=== PATIENT | female | born 1980 | race Caucasian/White ===

== ENCOUNTER → 2016-11-09 | Outpatient (CLI) | payer BC ==
--- NOTE | 2016-11-12 07:01 | MM ---
Reason for exam: follow-up at short interval from prior study. Last mammogram was performed 5 months ago. History: Patient has history of other cancer at age 30. US discontinued breast bx RT of the right breast, June 15, 2016. Taking hormonal contraceptives for 17 years. Physical Findings: Nurse did not find any significant physical abnormalities on exam. MG 3D Diag Mammo W/Cad SAUNDRA Bilateral CC and MLO view(s) were taken. Prior study comparison: June 08, 2016, right breast MG 3d diag mammo w/cad RT. November 04, 2015, bilateral MG 3d diag mammo w/cad SAUNDRA. The breast tissue is heterogeneously dense. This may lower the sensitivity of mammography. Finding: There are typically benign round calcifications in both breasts. There is a chronic nodularity in the right breast. There is no dominant lesion. These results were verbally communicated with the patient and result sheet given to the patient on 11/09/16. ASSESSMENT: Suspicious, BI-RAD 4 RECOMMENDATION: Ultrasound core biopsy of the right breast. Called Dr. Rascon with mammographic findings and has scheduled an appointment for the patient for 11/15/16 at 11:[address] Ku. PRELIMINARY REPORT CALLED AND FAXED TO DR. KU ON 11/12/16 AT 300/TP.
--- NOTE | 2016-11-12 07:02 | USB ---
Reason for exam: follow-up at short interval from prior study. History: Patient has history of other cancer at age 30. US discontinued breast bx RT of the right breast, June 15, 2016. Taking hormonal contraceptives for 17 years. US Breast RT Right breast ultrasound including all four quadrants, the retroareolar region and axilla demonstrates a 0.7 x 0.8 x 0.4cm oval, lobular, hypoechoic lesion at 1 o'clock for which a biopsy is advised and a 0.3 x 0.3 x 0.2cm oval, cystic lesion at 11 o'clock. These results were verbally communicated with the patient and result sheet given to the patient on 11/09/16. ASSESSMENT: Suspicious, BI-RAD 4 RECOMMENDATION: Ultrasound core biopsy of the right breast. Called Dr. Rascon with mammographic findings and has scheduled an appointment for the patient for 11/15/16 at 11:[address] Ku. PRELIMINARY REPORT CALLED AND FAXED TO DR. KU ON 11/12/16 AT 300/TP.
== END | disposition home or self-care (01) ==
LOC: RADMAMWWP 12:54
PROVIDERS: ATTEND Obstetrics & Gynecology
DX: R92.8 Other abnormal and inconclusive findings on diagnostic imaging of breast (principal)
CPT/HCPCS: 76641; G0204; G0279

== ENCOUNTER → 2018-01-03 | Outpatient (CLI) | payer MEDICAID ==
--- NOTE | 2018-01-03 11:02 | MM ---
Reason for exam: additional evaluation requested from prior study. Last mammogram was performed 1 year and 2 months ago. History: Patient has history of other cancer at age 30. Benign ultrasound-guided core biopsy of the right breast, 2016. US discontinued breast bx RT of the right breast, June 15, 2016. Taking hormonal contraceptives for 17 years. Physical Findings: Nurse did not find any significant physical abnormalities on exam. MG Diagnostic Mammo w CAD SAUNDRA Bilateral CC and MLO view(s) were taken. Prior study comparison: November 09, 2016, bilateral MG 3d diag mammo w/cad SAUNDRA. June 08, 2016, right breast MG 3d diag mammo w/cad RT. The breast tissue is heterogeneously dense. This may lower the sensitivity of mammography. Nodular density which was biopsied previously (fibroadenoma) right breast. No new nodularity. These results were verbally communicated with the patient and result sheet given to the patient on 01/03/18. ASSESSMENT: Incomplete: need additional imaging evaluation, BI-RAD 0 RECOMMENDATION: Ultrasound of the right breast.
--- NOTE | 2018-01-03 11:05 | USB ---
Reason for exam: additional evaluation requested from abnormal screening. History: Patient has history of other cancer at age 30. Benign ultrasound-guided core biopsy of the right breast, 2017. US discontinued breast bx RT of the right breast, June 15, 2016. Taking hormonal contraceptives for 17 years. US Breast RT Right breast ultrasound includes all four quadrants, the retroareolar region and axilla. Finding demonstrates a 0.6 x 0.5 x 0.8cm hypoechoic lesion at 1 o'clock, previously biopsied consistent with fibroadenoma. These results were verbally communicated with the patient and result sheet given to the patient on 01/03/18.. ASSESSMENT: Benign, BI-RAD 2 RECOMMENDATION: Routine screening mammogram of both breasts in 1 year.
== END ==
LOC: RADMAMWWP 08:34
PROVIDERS: ATTEND Surgery
DX: R92.8 Other abnormal and inconclusive findings on diagnostic imaging of breast (principal)
CPT/HCPCS: 77066

== ENCOUNTER → 2019-04-03 | Outpatient (CLI) | payer MEDICAID ==
[2019-04-03 18:07] LABS: HIV 1 AB Non-Reactive (Non-Reactive); HIV AB P24 Non-Reactive (Non-Reactive); HIV P24 AG Non-Reactive (Non-Reactive)
--- NOTE | 2019-04-06 10:50 | MM ---
Reason for exam: screening (asymptomatic). Last mammogram was performed 1 year and 3 months ago. History: Patient has history of other cancer at age 30. Benign ultrasound-guided core biopsy of the right breast, 2017. US discontinued breast bx RT of the right breast, June 15, 2016. Taking hormonal contraceptives for 19 years. Physical Findings: A clinical breast exam by your physician is recommended on an annual basis and results should be correlated with mammographic findings. MG 3D Screening Mammo W/Cad Bilateral CC, MLO, and XCCL view(s) were taken. Prior study comparison: January 03, 2018, bilateral MG diagnostic mammo w CAD SAUNDRA. November 09, 2016, bilateral MG 3d diag mammo w/cad SAUNDRA. The breast tissue is heterogeneously dense. This may lower the sensitivity of mammography. Benign appearing bilateral calcifications. Previous mammotome biopsy in the right breast. There is chronic nodularity in the right breast. No significant changes when compared with prior studies. ASSESSMENT: Benign, BI-RAD 2 RECOMMENDATION: Routine screening mammogram of both breasts in 1 year.
== END | disposition home or self-care (01) ==
LOC: RADMAMWWP 07:34
PROVIDERS: ATTEND Obstetrics & Gynecology
DX: Z12.31 Encounter for screening mammogram for malignant neoplasm of breast (principal); Z11.3 Encounter for screening for infections with a predominantly sexual mode of transmission
CPT/HCPCS: 36415; 77063; 77067; 86780; 87390

== ENCOUNTER → 2020-03-08 | Outpatient (CLI) | payer MEDICAID ==
--- NOTE | 2020-03-08 14:50 | US ---
EXAMINATION TYPE: US transvaginal DATE OF EXAM: 03/08/2020 COMPARISON: NONE CLINICAL HISTORY: R10.2 Pelvic pain. Pain. Patient states missed period and had a blood elie t that was negative. TECHNIQUE: Transvaginal (TV). EXAM MEASUREMENTS: Uterus: 8.1 x 4.5 x 5.7 cm Endometrial Stripe: .7 cm Right Ovary: 3.2 x 1.9 x 1.9 cm Left Ovary: 4.0 x 1.8 x 2.0 cm 1. Uterus: Anteverted 2. Endometrium: Complex area of fluid seen with debris. This measures 1.8 x 0.7 cm 3. Right Ovary: Complex area 1.4 x 1.0 x 1.1 cm. 4. Left Ovary: Follicles seen 5. Bilateral Adnexa: wnl 6. Posterior cul-de-sac: Trace fluid IMPRESSION: Complex intraendometrial fluid could represent retained blood products, however ectopic p regnancy is a consideration with a pseudogestational sac and possible corpus luteum of the right ovar y. Ensure negative serum beta hCG.
== END | disposition home or self-care (01) ==
LOC: RADUSWWP 13:25
PROVIDERS: ATTEND Obstetrics & Gynecology
DX: R10.2 Pelvic and perineal pain (principal)
CPT/HCPCS: 76830

== ENCOUNTER → 2021-11-03 | Outpatient (CLI) | payer MEDICAID ==
[2021-11-03 11:12] LABS: Basophils # (A) 0.04 X 10*3/uL (0.00-0.10); Basophils % (A) 0.8 %; Eosinophils # (A) 0.21 X 10*3/uL (0.04-0.35); Eosinophils % (A) 4.4 %; HCT 40.1 % (37.2-46.3); HGB 12.7 g/dL (12.0-15.0); Lymphocytes # (A) 1.97 X 10*3/uL (0.90-5.00); Lymphocytes % (A) 41.7 %; MCH 29.5 pg (27.0-32.0); MCHC 31.7 g/dL (32.0-37.0); Monocytes # (A) 0.52 X 10*3/uL (0.20-1.00); Neutrophils # (A) 1.97 X 10*3/uL (1.80-7.70); Neutrophils % (A) 41.9 %; Platelet Count 288 X 10*3/uL (140-440); RBC 4.31 X 10*6/uL (4.10-5.20); RDW 12.4 % (11.5-14.5); WBC 4.72 X 10*3/uL (4.50-10.00)
[2021-11-03 16:58] LABS: ALT 18 U/L (8-44); AST 19 U/L (13-35); African American GFR (CKD) 106.1 (60.0-200.0); Albumin 4.4 g/dL (3.8-4.9); Albumin/Globulin Ratio 1.44 (1.60-3.17); Alkaline Phosphatase 40 U/L (41-126); BUN/Creat Ratio 18.08 Ratio (12.00-20.00); Blood Urea Nitrogen 14.3 mg/dL (9.0-27.0); Calcium 9.3 mg/dL (8.7-10.3); Carbon Dioxide 18.7 mmol/L (20.0-27.5); Chloride 103 mmol/L (96-109); Glucose 83 mg/dL (70-110); LDL Cholesterol,Calculated 105.3 mg/dL (0.0-131.0); Non-African American GFR(CKD) 91.5 (60.0-200.0); Potassium 4.5 mmol/L (3.5-5.5); Sodium 138 mmol/L (135-145); Total Protein 7.4 g/dL (6.2-8.2)
== END | disposition home or self-care (01) ==
LOC: LABWHC1 07:08
PROVIDERS: ATTEND Internal Medicine
DX: Z00.01 Encounter for general adult medical examination with abnormal findings (principal); Z13.220 Encounter for screening for lipoid disorders; E55.9 Vitamin D deficiency, unspecified; F41.1 Generalized anxiety disorder
CPT/HCPCS: 36415; 80053; 80061; 82306; 85025

== ENCOUNTER → 2021-11-03 | Outpatient (CLI) | payer MEDICAID ==
--- NOTE | 2021-11-06 10:02 | MM ---
Reason for exam: screening (asymptomatic). Last mammogram was performed 2 years and 7 months ago. History: Patient has history of other cancer at age 30. Family history of breast cancer in maternal aunt at age 50. Benign ultrasound-guided core biopsy of the right breast, 2017. US discontinued breast bx RT of the right breast, June 15, 2016. Taking hormonal contraceptives for 22 years. Physical Findings: A clinical breast exam by your physician is recommended on an annual basis and results should be correlated with mammographic findings. MG 3D Screening Mammo W/Cad Bilateral CC, MLO, and XCCL view(s) were taken. Prior study comparison: April 03, 2019, bilateral MG 3d screening mammo w/cad. January 03, 2018, bilateral MG diagnostic mammo w CAD SAUNDRA. The breast tissue is extremely dense which could obscure a lesion on mammography. There are benign appearing round calcifications bilaterally. Previous mammotome biopsy in the right breast. There is no discrete abnormality. ASSESSMENT: Benign, BI-RAD 2 RECOMMENDATION: Routine screening mammogram of both breasts in 1 year.
== END | disposition home or self-care (01) ==
LOC: RADMAMWWP 07:10
PROVIDERS: ATTEND Obstetrics & Gynecology
DX: Z12.31 Encounter for screening mammogram for malignant neoplasm of breast (principal)
CPT/HCPCS: 77063; 77067

== ENCOUNTER → 2022-06-08 | Outpatient (CLI) | payer OTHER ==
--- NOTE | 2022-06-08 10:15 | CT ---
EXAMINATION TYPE: CT abdomen pelvis wo/w con DATE OF EXAM: 06/08/2022 HISTORY: Abnormal findings on diagnostic imaging of Liver and Biliary Tract CT DLP: 827.10mGycm Automated Exposure Control for Dose Reduction was Utilized. CONTRAST: CT scan of the abdomen and pelvis is performed with oral and without and with IV Contrast, patient in jected with 100 mL of Isovue 300. COMPARISON: Prior CT March 15, 2010 FINDINGS: LUNG BASES: No significant abnormality is appreciated. LIVER/GB: Liver remains stable and normal in size. No suspicious solid or cystic masses. No biliary d ilatation. PANCREAS: No significant abnormality is seen. SPLEEN: No significant abnormality is seen. ADRENALS: No significant abnormality is seen. KIDNEYS: No distinct renal calculi on current study noncontrast images. Postcontrast images show symm etric cortical uptake and excretion without hydronephrosis bilaterally. No concerning solid or cystic renal masses are identified bilaterally. BOWEL: Oral contrast reaches level of rectum. Slightly suboptimal evaluation as patient has little in tra-abdominal fat. No suspicious bowel dilatation is seen. UTERUS/ADNEXA: Retroflexed slightly bulky uterus suggesting underlying fibroids. LYMPH NODES: No greater than 1cm abdominal or pelvic lymph nodes are appreciated. OSSEOUS STRUCTURES: No significant abnormality is seen. 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 Small size umbilical hernia. IMPRESSION: No suspicious liver masses or biliary dilatation. Correlate clinically to exclude celiac artery compression syndrome otherwise unremarkable study
== END | disposition home or self-care (01) ==
LOC: RADCTMAIN 07:00
PROVIDERS: ATTEND Internal Medicine Gastroenterology
DX: R93.2 Abnormal findings on diagnostic imaging of liver and biliary tract (principal)
CPT/HCPCS: 74178; Q9967 ×2

== ENCOUNTER → 2022-08-08 | Outpatient (CLI) | payer OTHER ==
--- NOTE | 2022-08-08 10:40 | NM ---
EXAMINATION TYPE: NM hepatobiliary w EF DATE OF EXAM: 08/08/2022 COMPARISON: CT abdomen June 08, 2022 HISTORY: unspecified abdominal pain. Diminished appetite and epigastric pain with nausea per patient. TECHNIQUE: After the intravenous administration of 4.0 mCi Tc 99m Mebrofenin hepatobiliary scintigrap hy is performed. Immediate images post injection. FINDINGS: There is less than ideal accumulation of tracer by the liver. The gallbladder is visualized within 1 5 minutes. The small bowel activity is not well seen even after 60 minutes. At one hour 8 ounces of oral ensure plus is given to mimic CCK and gallbladder ejection fraction is calculated at 68 %, in t he normal range. Therefore there is no scintigraphic evidence of cystic or common bile duct obstruct ion to suggest acute cholecystitis or gallbladder dyskinesia. IMPRESSION: Ejection fraction is within normal limits.
== END | disposition home or self-care (01) ==
LOC: RADNMMAIN 07:04
PROVIDERS: ATTEND Internal Medicine Gastroenterology
DX: R10.9 Unspecified abdominal pain (principal)
CPT/HCPCS: 78226; A9537

== ENCOUNTER → 2022-08-10 | Outpatient (CLI) | payer OTHER ==
--- NOTE | 2022-08-10 10:15 | FL ---
EXAMINATION TYPE: FL UGI air w small bowel DATE OF EXAM: 08/10/2022 COMPARISON: NONE HISTORY: R10.9 Unspecified abd pain TECHNIQUE: A air contrast UGI study is performed with small bowel follow through. A total of 1MIN 4 9SEC of fluoroscopic time was utilized during procedure and 28 images obtained. 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 The esophagus shows normal motility and emptying into the stomach. No evidence of hiatal hernia or s tricture noted. Mild gastroesophageal reflux noted during the course of the examination. The stomach shows normal distensibility, peristalsis, and mucosal folds. No evidence of any mass or ulcer disease. No significant esophageal reflux was seen during real time performance of this study. The duodenal bulb and sweep are unremarkable. The small bowel study shows normal transit to the colon in less than 30 minutes. There is normal muc osal fold pattern throughout the small bowel. There is no evidence of any stricture or filling defec t noted. The terminal ileum is unremarkable. IMPRESSION: 1. Mild gastroesophageal reflux. The examination is otherwise within normal limits.
== END | disposition home or self-care (01) ==
LOC: RADFLMAIN 08:09
PROVIDERS: ATTEND Internal Medicine Gastroenterology
DX: K21.9 Gastro-esophageal reflux disease without esophagitis (principal)
CPT/HCPCS: 74240; 74248

== ENCOUNTER 2022-09-28 06:45 | Day surgery (SDC) | payer OTHER ==
[~2022-09-28 06:45] MED LIST: LACTATED RINGERS 1,000 ML IV SCH; LIDOCAINE 1% (10MG/ML) FOR IV START INTRADERMA PRN
[2022-09-28 07:17] VITALS: TEMP 52.7
[2022-09-28 07:28] LABS: Glucose,Whole Blood 73 mg/dL (70-110)
[2022-09-28] MEDS ORDERED: PROPOFOL 10 MG/ML 20 ML VIAL IV ONE (07:47)
[2022-09-28] MEDS ORDERED: LIDOCAINE 2% INJ 20 MG/ML (2 ML VIAL) ONE (07:47)
--- NOTE | 2022-09-28 07:57 | P.PCN ---
Date of Procedure: 09/28/22 Procedure(s) Performed: BRIEF HISTORY: Patient is a 42-year-old, pleasant, white female scheduled for an upper abdominal pain for the last several years duration. She denies any nausea vomiting. She had excessive investigation results of abdomen as well as CT of abdomen that was unremarkable. She stated with omeprazole 20 mg daily with no relief. She is scheduled for an upper endoscopy to evaluate further. PROCEDURE PERFORMED: Esophagogastroduodenoscopy with biopsy. PREOPERATIVE DIAGNOSIS: Chronic Epigastric pain and abdominal bloating of several years duration.. IV sedation per anesthesia. PROCEDURE: After informed consent was obtained, the patient was brought into the endoscopy unit. IV sedation was administered by Anesthesia under continuous monitoring. Initially the Olympus GIF-140 video endoscope was inserted into the mouth. Esophagus intubated without any difficulty. It was gradually advanced into the stomach and duodenum and carefully examined. The bulb and the second part of the duodenum appeared normal. Biopsies were done from the duodenum to rule out celiac disease. The scope at this time was withdrawn to the stomach, adequately insufflated with air, and upon careful examination, mucosa of the antrum, had patchy areas of erythema consistent with gastritis and biopsies were done from this area. Mucosa of the body, cardia and the fundus appeared normal. The scope was then withdrawn into the esophagus. The GE junction was located at 39 cm from the incisors. Small sliding type hiatal hernia noted. The esophagus appeared normal. There were no erosions or ulcerations seen and the patient tolerated the procedure well. IMPRESSION: 1. Mild antral gastritis. 2. Small hiatal hernia. RECOMMENDATIONS: The findings of this examination were discussed with the patient well as her family. She was advised to follow with the biopsy results. Discussed about diet modification. Continue with omeprazole as needed. Follow with the biopsy results and she'll be seen in office in 3-4 weeks..
[2022-09-28] MEDS ORDERED: DEXAMETHASONE SOD PHOSPHATE 4 MG/ML 1 ML VIAL IVP ONE (08:21)
[2022-09-28 08:24] VITALS: RESP 16
[2022-09-28] MEDS ORDERED: fentaNYL (PF) 50 MCG/1 ML VIAL IVP ONE (08:54)
[2022-09-28 09:09] VITALS: BP 129/81; PULSE 66
== END 2022-09-28 09:42 | disposition home or self-care (01) ==
LOC: ORWHC2ENDO 06:45
PROVIDERS: ATTEND Internal Medicine Gastroenterology
DX: D72.820 Lymphocytosis (symptomatic) (principal); K29.50 Unspecified chronic gastritis without bleeding; K44.9 Diaphragmatic hernia without obstruction or gangrene; J45.909 Unspecified asthma, uncomplicated; G43.909 Migraine, unspecified, not intractable, without status migrainosus; G89.29 Other chronic pain; Z88.5 Allergy status to narcotic agent; Z79.899 Other long term (current) drug therapy
CPT/HCPCS: 81025; 43239; J1100; J2704; J2001; J3010; 88305

== ENCOUNTER → 2023-09-06 | Outpatient (CLI) | payer OTHER ==
--- NOTE | 2023-09-06 13:41 | CT ---
Exam: CT Chest without contrast. Date: 09/06/2023. Comparison: None History: Covid one week prior with history of persistent asthma. Technique: CT examination of the chest was performed without contrast. Coronal and sagittal reformats were performed. CT dose lowering techniques were used, to include: automated exposure control, adjus tment for patient size, and/or use of iterative reconstruction. FINDINGS: Mediastinum and Odalys: There is no axillary, mediastinal or hilar lymphadenopathy. Pleural and Pericardial spaces: There are no pleural or pericardial effusions. Upper Abdomen: The visualized upper abdomen is unremarkable. Cardiovascular: The thoracic aorta is normal in size. Lung Parenchyma and Airways: The lungs are clear. Bones: No fracture or aggressive osseous lesion. IMPRESSION: 1. No acute abnormality in the chest.
== END | disposition home or self-care (01) ==
LOC: RADCTMAIN 13:17
PROVIDERS: ATTEND Internal Medicine Pulmonary Disease
DX: U07.1 COVID-19 (principal); J45.909 Unspecified asthma, uncomplicated; J45.51 Severe persistent asthma with (acute) exacerbation
CPT/HCPCS: 71250

== ENCOUNTER → 2024-10-16 | Outpatient (CLI) | payer OTHER ==
--- NOTE | 2024-10-16 08:45 | US ---
EXAMINATION TYPE: US transvaginal DATE OF EXAM: 10/16/2024 COMPARISON: Prior pelvic ultrasound March 08, 2020. Prior CT abdomen and pelvis June 08, 2022 CLINICAL INDICATION: Female, 44 years old with history of R10.2 PELVIC AND PERINEAL PAIN; Pain TECHNIQUE: Transvaginal (TV). FINDINGS: EXAM MEASUREMENTS: Uterus: 8.0 x 5.1 x 6.2 cm Endometrial Stripe: 0.1 cm Right Ovary: 3.4 x 1.1 x 1.6 cm Left Ovary: 1.8 x 2.5 x 1.6 cm 1. Uterus: Retroverted 2 hypoechoic areas seen 1.8 x 1.7 x 1.3 cm and 1.8 x 1.3 x 1.5 cm. 2. Endometrium: Fluid filled measuring 7 mm 3. Right Ovary: Echogenic area seen .7 x .5 cm. 4. Left Ovary: wnl 5. Bilateral Adnexa: wnl 6. Posterior cul-de-sac: wnl There is no evidence of focal fluid within the endometrial canal redemonstrated less prominent versus prior ultrasound. There are small intramural fibroids marked by technologist. No free fluid in the p gloria. Right ovary has new 7 mm hyperechoic structure could reflect tiny dermoid. Left ovary appears within normal limits. IMPRESSION: 1. Redemonstration of nonsimple fluid in the endometrial canal. Consider blood product. Consider cerv ical canal stenosis. Correlate clinically. 2. Possible small subcentimeter new right ovarian dermoid. Advise ultrasound follow-up in 6 months ti me to reassess. 3. There are believed to be 2 new small intramural fibroids. [facility], , 10/16/2024 8:43 AM
== END | disposition home or self-care (01) ==
LOC: RADUSWWP 07:06
PROVIDERS: ATTEND Internal Medicine
DX: D25.1 Intramural leiomyoma of uterus (principal)
CPT/HCPCS: 76830

== ENCOUNTER → 2025-04-21 | Outpatient (CLI) | payer OTHER ==
--- NOTE | 2025-04-21 10:38 | XR ---
EXAMINATION TYPE: XR pelvis AP view DATE OF EXAM: 04/21/2025 10:26 AM COMPARISON: None CLINICAL INDICATION: Female, 44 years old with history of R10.84 ABD PAIN; PHH, pain TECHNIQUE: XR pelvis AP view, examined in a single projection. FINDINGS: [id number] stool in the right side of the colon and rectum. Pelvic phleboliths. SI raheel ints appear symmetric and intact as of the hips and pubic symphysis. No acute fracture or subluxation , dislocation. IMPRESSION: No acute osseous abnormalities seen. Pelvic phleboliths. [facility], Workstation: [facility], 04/21/2025 10:35 AM
--- NOTE | 2025-04-21 10:45 | XR ---
EXAMINATION TYPE: XR abdomen 1V DATE OF EXAM: 04/21/2025 10:26 AM COMPARISON: None CLINICAL INDICATION: Female, 44 years old with history of R10.84 ABD PAIN; PHH, pain TECHNIQUE: One radiographic view of the abdomen was obtained. FINDINGS: There is overall mild to moderate stool burden particularly in the right side of the colon and rectum. Pelvic phleboliths. No dilated small bowel. IMPRESSION: Overall mild to moderate stool burden. Nonobstructive bowel gas pattern. [facility], , 04/21/2025 10:42 AM
== END | disposition home or self-care (01) ==
LOC: RADXRMAIN 10:04
PROVIDERS: ATTEND Internal Medicine Gastroenterology
DX: R10.84 Generalized abdominal pain (principal)
CPT/HCPCS: 72170; 74018